=== PATIENT | male | born 1945 | race Two or more races ===

== ENCOUNTER → 2018-01-28 | Outpatient (CLI) | payer OTHER, MEDICAID ==
[~2018-01-28] VITALS: Ht 172.7 cm; Wt 65.8 kg
[~2018-01-28] MED LIST: ASPI81CH43 PO; ATEN-60 PO; ATROPINE SULF 1 MG/10ml SYR ONE; DOBUTamine 1000MCG/ML 100 ML IV ONE
[2018-01-28 09:15] VITALS: BP 160/91
== END | disposition home or self-care (01) ==
LOC: XY 08:11
PROVIDERS: ATTEND Internal Medicine
DX: I99.8 Other disorder of circulatory system (principal)
CPT/HCPCS: 78452; 93017; A9500; J1250

== ENCOUNTER → 2018-02-11 | Outpatient (CLI) | payer OTHER, MEDICAID ==
[~2018-02-11] MED LIST changes: -ATROPINE SULF 1 MG/10ml SYR ONE; -DOBUTamine 1000MCG/ML 100 ML IV ONE
== END | disposition home or self-care (01) ==
LOC: XYW 09:08
PROVIDERS: ATTEND Internal Medicine
DX: Z01.818 Encounter for other preprocedural examination (principal); I51.7 Cardiomegaly
CPT/HCPCS: 93306

== ENCOUNTER 2018-04-22 07:50 | Inpatient (IN) | payer OTHER, MEDICAID ==
[2018-04-20 11:58] LABS: Basophils # (auto) 0 uL; Eosinophils # (auto) 0.1 uL; Eosinophils % (auto) 2.2 % (0.0-7.0); Hematocrit 40.5 % (41.0-53.0); Hemoglobin 13.5 g/dL (13.5-17.5); Lymphocytes # (auto) 1.6 uL; Lymphocytes % (auto) 33.7 % (10.0-50.0); Mean Corpuscular Hemoglobin 32.4 pg (28.0-32.0); Mean Corpuscular Hgb Conc. 33.2 g/dL (32.0-36.0); Mean Corpuscular Volume 97.5 fL (80.0-100.0); Monocytes # (auto) 0.5 uL; Monocytes % (auto) 10.1 % (0.0-12.0); Neutrophils # (auto) 2.5 uL; Nucleated Red Blood Cells % 0.1 %; Platelet Count (auto) 236 10^3/uL (140-450); Red Blood Cells 4.16 10^6/uL (4.5-5.90); Red Cell Distribution Width 13.3 % (11.8-14.3); White Blood Cell 4.8 10^3/uL (4.4-10.8)
[2018-04-20 12:09] LABS: Urine Bacteria NONE SEEN /hpf (None Seen); Urine Blood 1+ /uL (Negative); Urine Specific Gravity 1.015 (1.001-1.035); Urine WBC 2 /hpf (0 - 3)
[2018-04-20 12:14] LABS: INR 0.92 (0.9-1.15); Partial Thromboplastin Time 24.6 sec (23.78-33.04); Prothrombin Time 9.9 sec (9.27-12.13)
[2018-04-20 13:44] LABS: Potassium 4.1 mmol/L (3.5-5.1)
[2018-04-20 13:57] LABS: Albumin 3.9 g/dL (3.4-5.0); BUN/Creatinine Ratio 13.1; Bilirubin, Total 0.3 mg/dL (0.2-1.0); Calcium 8.9 mg/dL (8.5-10.1); Total Protein 7.7 g/dL (6.4-8.2)
[~2018-04-22] VITALS: Ht 172.7 cm; Wt 62.9 kg
[~2018-04-22 07:50] MED LIST changes: -ASPI81CH43 PO; -ATEN-60 PO; +IBUP800T24 PO; +TIOTCAP IN
[2018-04-22] MEDS ORDERED: ceFAZolin 1GM/50ML 50 ML IV ONE (08:30)
[2018-04-22] MEDS ORDERED: LIDOCAINE 2% (LOCAL ANESTH.) PF 5ml SDV ONE (09:35)
[2018-04-22] MEDS ORDERED: MIDAZOLAM HCL 1MG/1ML-2 ML VIAL ONE (09:35)
[2018-04-22] MEDS ORDERED: ROCURONIUM 10MG/ML 10ML VIAL IV ONE (09:36)
[2018-04-22] MEDS ORDERED: ETOMIDATE (2MG/ML) 20ML VIAL IV ONE (09:36)
[2018-04-22] MEDS ORDERED: BUPIVACAINE W/ EPINEPH 0.25% INJ 50ML MDV ONE (10:25)
[2018-04-22] MEDS ORDERED: fentaNYL CITRATE 100 MCG/2 ML VL ONE (10:45)
[2018-04-22] MEDS ORDERED: NALOXONE HCL 0.4 MG/ML VIAL IV PRN (11:00)
[2018-04-22] MEDS ORDERED: ONDANSETRON HCL 4 MG/2 ML VIAL IV ONE (11:00)
[2018-04-22] MEDS ORDERED: ePHEDrine SULFATE 50 MG/ML AMP ONE (11:22)
[2018-04-22] MEDS ORDERED: STERILE WATER 10 ML ONE (11:22)
[2018-04-22] MEDS ORDERED: NEOSTIGMINE 1 MG/ML INJ (10mg/10ML VIAL) ONE (12:07)
[2018-04-22] MEDS ORDERED: GLYCOPYRROLATE 0.2 MG/ML 1ML VIAL ONE (12:07)
[2018-04-22] MEDS ORDERED: hydrALAZINE HCL 20 MG/ML VL IV ONE (12:30)
[2018-04-22] MEDS ORDERED: hydrALAZINE HCL 20 MG/ML VL ONE (12:35)
[2018-04-22] MEDS ORDERED: hydrALAZINE HCL 20 MG/ML VL IV PRN (12:45)
[2018-04-22] MEDS ORDERED: ONDANSETRON HCL 4 MG/2 ML VIAL IV PRN (12:45)
[2018-04-22] MEDS: SODIUM CHLORIDE 0.9% 1,000 ML IV SCH (12:45)
[2018-04-22] MEDS: HYDROmorphone HCL 2 MG/ML VL IV PRN ×4 (12:55→15:42)
[2018-04-22] MEDS ORDERED: PANTOPRAZOLE 40 MG/10 ML VIAL IV ONE (13:00)
--- NOTE | 2018-04-22 17:10 | NUR ---
PATIENT ARRIVED FROM POST OP BY [facility]. ALERT ORIENTED X4, TRANSFERRED GENTLY FROM THE RNEY TO BED, PT HAS A MIDLINE INCISION AT THE ABDOMEN AREA, COVERED WITH DRY DRESSING, AND ABDOMEN BINDER, PT STILL HAVE HIS UNDERWEAR, REUSED STRONGLY, STATED < NO > , A URINAL GIVEN TO PT , PT'S BROTHER AT BED SIDE, ROOM ORIENTATION GIVEN TO PT, CALL LIGHT WITHIN REACH.
[2018-04-22 17:26] VITALS: BP 136/68
[2018-04-22 17:49] VITALS: BP 136/68
[2018-04-22] MEDS: MORPHINE SULFATE 4 MG/ML SYR/VIAL IV PRN ×2 (17:58→22:41)
[2018-04-22] MEDS: IPRATROPIUM BROM 0.5 MG/2.5ML INH SOL NEB SCH (18:52)
[2018-04-22] MEDS: ALBUTEROL SULF 2.5 MG/0.5ML(0.5%) NEB SOLN NEB SCH (18:52)
[2018-04-22 18:57] VITALS: BP 136/68
--- NOTE | 2018-04-22 19:15 | NUR ---
Opening Shift Note Assumed care of patient, awake and alert. No S/S of distress or SOB. Abdomen dressing dry and intact. Instructed on POC and to call for assistance PRN, will continue to monitor for changes Q1hr and PRN.
[2018-04-22 22:00] VITALS: BP 123/65
[2018-04-23] MEDS: SODIUM CHLORIDE 0.9% 1,000 ML IV SCH ×2 (00:35→15:25)
[2018-04-23] MEDS: MORPHINE SULFATE 4 MG/ML SYR/VIAL IV PRN ×2 (03:58→09:33)
[2018-04-23 05:05] VITALS: BP 115/60
[2018-04-23 06:25] LABS: Basophils # (auto) 0 uL; Basophils % (auto) 0.4 % (0.0-2.0); Eosinophils # (auto) 0 uL; Eosinophils % (auto) 0.1 % (0.0-7.0); Hematocrit 37.2 % (41.0-53.0); Hemoglobin 12.4 g/dL (13.5-17.5); Lymphocytes % (auto) 14.4 % (10.0-50.0); Mean Corpuscular Hemoglobin 32.7 pg (28.0-32.0); Mean Corpuscular Hgb Conc. 33.3 g/dL (32.0-36.0); Mean Corpuscular Volume 98.1 fL (80.0-100.0); Monocytes # (auto) 0.6 uL; Neutrophils # (auto) 5.3 uL; Neutrophils % (auto) 76.1 % (37.0-80.0); Nucleated Red Blood Cells % 0.1 %; Platelet Count (auto) 196 10^3/uL (140-450); Red Blood Cells 3.79 10^6/uL (4.5-5.90); Red Cell Distribution Width 13.1 % (11.8-14.3)
[2018-04-23 06:27] LABS: Potassium 4.7 mmol/L (3.5-5.1)
[2018-04-23 06:31] LABS: BUN/Creatinine Ratio 10.7
[2018-04-23] MEDS: IPRATROPIUM BROM 0.5 MG/2.5ML INH SOL NEB SCH ×4 (06:54→19:32)
[2018-04-23] MEDS: ALBUTEROL SULF 2.5 MG/0.5ML(0.5%) NEB SOLN NEB SCH ×4 (06:54→19:32)
[2018-04-23 09:00] VITALS: BP 125/56
[2018-04-23] MEDS: PANTOPRAZOLE 40 MG/10 ML VIAL IV SCH (09:33)
[2018-04-23 13:00] VITALS: BP 118/66
[2018-04-23] MEDS: HYDROcodone-ACET 5/325MG TAB PO PRN ×2 (14:15→20:25)
[2018-04-23 17:00] VITALS: BP 108/60
[2018-04-23 22:00] VITALS: BP 135/69
[2018-04-24] MEDS: SODIUM CHLORIDE 0.9% 1,000 ML IV SCH ×2 (04:45→18:05)
[2018-04-24 05:00] VITALS: BP 146/66
[2018-04-24] MEDS: ALBUTEROL SULF 2.5 MG/0.5ML(0.5%) NEB SOLN NEB SCH ×4 (06:40→17:57)
[2018-04-24] MEDS: IPRATROPIUM BROM 0.5 MG/2.5ML INH SOL NEB SCH ×4 (06:40→17:57)
[2018-04-24 07:00] LABS: Basophils # (auto) 0 uL; Basophils % (auto) 0.2 % (0.0-2.0); Eosinophils # (auto) 0 uL; Eosinophils % (auto) 0.3 % (0.0-7.0); Hemoglobin 12.2 g/dL (13.5-17.5); Lymphocytes # (auto) 0.9 uL; Lymphocytes % (auto) 15.3 % (10.0-50.0); Mean Corpuscular Hemoglobin 32.4 pg (28.0-32.0); Monocytes # (auto) 0.5 uL; Monocytes % (auto) 8.4 % (0.0-12.0); Neutrophils # (auto) 4.5 uL; Neutrophils % (auto) 75.8 % (37.0-80.0); Nucleated Red Blood Cells % 0.1 %; Platelet Count (auto) 181 10^3/uL (140-450); Red Blood Cells 3.78 10^6/uL (4.5-5.90); Red Cell Distribution Width 12.9 % (11.8-14.3); White Blood Cell 5.9 10^3/uL (4.4-10.8)
--- NOTE | 2018-04-24 07:13 | NUR ---
Shift Note The patient had an uneventful night, tolerated treatments well, had few complaints. The patient did have some complaints of pain earlier in the shift but not since. Last check he was 5/10 pain at 0615hrs. The patient did get up to go to the bathroom but only put out gas. Will continue to monitor.
[2018-04-24] MEDS: HYDROcodone-ACET 5/325MG TAB PO PRN ×2 (08:02→16:59)
[2018-04-24 09:00] VITALS: BP 135/71
[2018-04-24] MEDS: PANTOPRAZOLE 40 MG/10 ML VIAL IV SCH (10:08)
--- NOTE | 2018-04-24 11:45 | NUR ---
RT NOTE: WENT TO PTS ROOM TO ASSESS FOR PRN BREATHING TX, PT SLEEPING AT THIS TIME. HR 83, SPO2 93% ON RA, RR 16, BREATH SOUNDS CLEAR. NO INDICATION FOR TX AT THIS TIME. WILL CONTINUE TO MONITOR PT. Addendum: 04/24/18 at 1153 by KARSTEN VELARDE RT WRONG PT.
[2018-04-24 13:04] VITALS: BP 113/56
[2018-04-24 17:00] VITALS: BP 153/88
[2018-04-24 22:10] VITALS: BP 123/104
[2018-04-25] MEDS: SODIUM CHLORIDE 0.9% 1,000 ML IV SCH (03:58)
[2018-04-25 04:55] VITALS: BP 131/77
[2018-04-25] MEDS: IPRATROPIUM BROM 0.5 MG/2.5ML INH SOL NEB SCH ×4 (06:31→19:15)
[2018-04-25] MEDS: ALBUTEROL SULF 2.5 MG/0.5ML(0.5%) NEB SOLN NEB SCH ×4 (06:31→19:15)
--- NOTE | 2018-04-25 06:31 | NUR ---
Shift Note The patient had an uneventful night, tolerated treatments well, had few complaints. He didn't really want his IV fluids running but explained that the doctor ordered it as needed. I further explained we can ask about the fluids during the day. The patient ambulated to the bathroom without difficulty, only passed gas, no BM. No complaints of pain during the shift, he pain was tolerable around 4-5/10. Will continue to monitor.
[2018-04-25 06:44] LABS: Hematocrit 37.1 % (41.0-53.0); Hemoglobin 12.3 g/dL (13.5-17.5)
[2018-04-25 07:07] LABS: BUN/Creatinine Ratio 7.9; Calcium 9.2 mg/dL (8.5-10.1); Potassium 4.2 mmol/L (3.5-5.1)
[2018-04-25 08:29] VITALS: BP 115/84
[2018-04-25] MEDS: PANTOPRAZOLE 40 MG/10 ML VIAL IV SCH (10:22)
[2018-04-25 12:31] VITALS: BP 129/90
--- NOTE | 2018-04-25 13:12 | NUR ---
DR DÍAZ AT BEDSIDE PATIENT SAID HE FEELS SHORT OF BREATH WITH OUT OXYGEN. ORDERS GIVEN TO CHECK ROOM AIR PULSE OX. STOP IV FLUIDS. CHEST X RAY.
--- NOTE | 2018-04-25 13:14 | NUR ---
PULSE OX ON ROOM AIR 88%. PLACED ON OXYGEN 2 LITERS VIA NASAL CANNULA OXYGEN SATURATION NOW 95 %.
[2018-04-25] MEDS ORDERED: FUROSEMIDE 20 MG/2 ML VIAL IV ONE (13:15)
[2018-04-25] MEDS ORDERED: MORPHINE SULFATE 4 MG/ML SYR/VIAL IV PRN (13:30)
[2018-04-25] MEDS ORDERED: ALBUTEROL SULF 2.5 MG/0.5ML(0.5%) NEB SOLN NEB PRN (13:30)
[2018-04-25] MEDS ORDERED: cefTRIAXone 1GM/50ML D5W 50 ML IV ONE (14:45)
[2018-04-25] MEDS ORDERED: AZITHROMYCIN 500MG/ 250ML 250 ML IV ONE (15:45)
[2018-04-25] MEDS: HYDROcodone-ACET 5/325MG TAB PO PRN (16:32)
[2018-04-25 17:19] VITALS: BP 126/84
--- NOTE | 2018-04-25 19:40 | NUR ---
Opening Shift Note Assumed care of patient, awake and alert. No S/S of distress/SOB or pain. Instructed on POC and to call for assist PRN. Bed in lowest locked position, call light within reach, side rails up x2, fall precautions in place. Will continue to monitor for changes Q1hr and PRN.
[2018-04-25 22:00] VITALS: BP 132/83
[2018-04-25] MEDS: DOCUSATE SOD 100 MG CAP PO SCH (22:18)
[2018-04-26] VITALS (7 sets, daily range): BP systolic 118–138; BP diastolic 70–86
[2018-04-26] MEDS: IPRATROPIUM BROM 0.5 MG/2.5ML INH SOL NEB SCH ×4 (06:30→23:29)
[2018-04-26] MEDS: ALBUTEROL SULF 2.5 MG/0.5ML(0.5%) NEB SOLN NEB SCH ×4 (06:30→23:29)
--- NOTE | 2018-04-26 07:40 | NUR ---
OPENING SHIFT NOTE ASSUMED CARE OF PATIENT FROM POINT OF CARE TECHNICIAN RN COLT. PATIENT IS AWAKE AND ALERT X4. PATIENT HAS NO S/S OF DISTRESS/SOB OR PAIN. INSTRUCTED PATIENT ON POC, PATIENT VERBALIZED UNDERSTANDING. BED IS IN LOWEST POSITION WITH SIDE RAILS RAISED X2, BED WHEELS LOCKED, AND CALL LIGHT WITHIN REACH. WILL CONTINUE TO MONITOR.
[2018-04-26] MEDS: cefTRIAXone 1GM/50ML D5W 50 ML IV SCH (09:46)
[2018-04-26] MEDS: DOCUSATE SOD 100 MG CAP PO SCH ×2 (09:46→21:31)
[2018-04-26] MEDS: PANTOPRAZOLE 40 MG/10 ML VIAL IV SCH (09:46)
[2018-04-26] MEDS: HYDROcodone-ACET 5/325MG TAB PO PRN ×2 (11:40→20:35)
[2018-04-26] MEDS: AZITHROMYCIN 500MG/ 250ML 250 ML IV SCH (11:41)
[2018-04-26] MEDS ORDERED: IPRATROPIUM BROM 0.5 MG/2.5ML INH SOL NEB PRN (13:45)
--- NOTE | 2018-04-26 19:20 | NUR ---
Opening Shift Note Assumed care of patient, awake and alert. No S/S of distress/SOB or pain. Instructed on POC and to call for assist PRN. Bed in lowest locked position, call light within reach, side rails up x2. Will continue to monitor for changes Q1hr and PRN.
--- NOTE | 2018-04-26 19:23 | NUR ---
CLOSING SHIFT NOTE ENDORSED CARE TO MANAGER CHANGE RN COLT. PATIENT HAS NO S/S OF DISTRESS/SOB OR PAIN AT THIS TIME.
[2018-04-27 05:00] VITALS: BP 130/72
[2018-04-27 07:01] LABS: Basophils # (auto) 0 uL; Basophils % (auto) 0.5 % (0.0-2.0); Eosinophils # (auto) 0.1 uL; Eosinophils % (auto) 2.4 % (0.0-7.0); Hematocrit 37.7 % (41.0-53.0); Hemoglobin 12.5 g/dL (13.5-17.5); Lymphocytes # (auto) 1.4 uL; Lymphocytes % (auto) 28.2 % (10.0-50.0); Mean Corpuscular Hemoglobin 32.4 pg (28.0-32.0); Mean Corpuscular Hgb Conc. 33.1 g/dL (32.0-36.0); Monocytes # (auto) 0.5 uL; Neutrophils # (auto) 2.8 uL; Neutrophils % (auto) 57.9 % (37.0-80.0); Nucleated Red Blood Cells % 0.1 %; Platelet Count (auto) 261 10^3/uL (140-450); Red Blood Cells 3.84 10^6/uL (4.5-5.90); Red Cell Distribution Width 12.9 % (11.8-14.3); White Blood Cell 4.8 10^3/uL (4.4-10.8)
[2018-04-27] MEDS: IPRATROPIUM BROM 0.5 MG/2.5ML INH SOL NEB SCH ×2 (07:12→11:40)
[2018-04-27] MEDS: ALBUTEROL SULF 2.5 MG/0.5ML(0.5%) NEB SOLN NEB SCH ×2 (07:12→11:40)
[2018-04-27 07:26] LABS: BUN/Creatinine Ratio 10.8; Calcium 9.3 mg/dL (8.5-10.1); Magnesium 2.1 mg/dL (1.6-2.6)
[2018-04-27 08:00] VITALS: BP 123/66
[2018-04-27 08:10] VITALS: BP 123/66
[2018-04-27] MEDS: PANTOPRAZOLE 40 MG/10 ML VIAL IV SCH (09:14)
[2018-04-27] MEDS: AZITHROMYCIN 500MG/ 250ML 250 ML IV SCH (09:14)
[2018-04-27] MEDS: DOCUSATE SOD 100 MG CAP PO SCH (09:14)
[2018-04-27] MEDS: cefTRIAXone 1GM/50ML D5W 50 ML IV SCH (09:14)
[2018-04-27] MEDS: HYDROcodone-ACET 5/325MG TAB PO PRN (09:21)
--- NOTE | 2018-04-27 09:52 | NUR ---
faxed o2 order to [facility]. Instructed [facility] of managed care to f/u with this order and make sure 02 gets to pt
[2018-04-27 12:24] VITALS: BP 119/76
[2018-04-27] MEDS ORDERED: DOCUSATE SOD 100 MG CAP PO ONE (12:30)
--- NOTE | 2018-04-27 12:30 | NUR ---
Dr. Cruz at bedside discussed with patient and patient is cleared to go home today.
--- NOTE | 2018-04-27 13:51 | NUR ---
amanda and d/cindy order faxed to [facility] and to May in [facility]
[2018-04-27 14:14] VITALS: BP 119/76
--- NOTE | 2018-04-27 15:00 | NUR ---
patient still has no BM, prune juice give and encourage to ambulate.
--- NOTE | 2018-04-27 15:50 | NUR ---
Left a message to Deborah regarding home o2 , awaiting to call back .
--- NOTE | 2018-04-27 15:52 | NUR ---
Received a call from Deborah stated Home o2 and a walker will deliver around 4 PM by # [phone]
--- NOTE | 2018-04-27 15:53 | NUR ---
PER MAY IN [facility], WALKER AND 02 WILL BE DELIVERED TO BEDSIDE AT APPROX 1600 HRS
--- NOTE | 2018-04-27 15:54 | NUR ---
PH # IS [phone] OR [phone]
--- NOTE | 2018-04-27 16:28 | NUR ---
Oxygen delivered at bedside but there is no walker, spoke to Deborah, stated will call a company.
--- NOTE | 2018-04-27 16:32 | NUR ---
Per Deborah [facility] will come back to deliver a walker.
--- NOTE | 2018-04-27 16:34 | NUR ---
MISBAH FORGOT TO DROP OFF WALKER WHEN THE DELIVERED . PER MAY, SHE CALLED [facility] AND THEY WILL DROP OF WALKER
[2018-04-27 17:00] VITALS: BP 137/83
--- NOTE | 2018-04-27 18:15 | NUR ---
Home oxygen and walker deliver at bedside by [facility].
--- NOTE | 2018-04-27 18:20 | NUR ---
Discharge instructions given as ordered. Encourage to follow up with PMD(Follow up with Dr. Desir in 1 week Address : [id number] [place] [address] [address], [place], [address] # [phone] Ext : [phone] Instructed patient to call and make an appointment with Dr. Desir next week, Follow up with PCP in 1-2 weeks) as instructed. All questions and concerns addressed. Patient verbalized understanding. Medication reconciliation form completed and copy given to patient. IV removed with catheter intact, pressure dressing applied. Patient taken to vehicle via wheelchair with all personal belongings including home oxygen and walker, accompanied by staff and family member. No distress noted at time of departure.
== END 2018-04-27 18:20 | disposition home or self-care (01) | DRG 335 ==
LOC: SUR 07:50 → EAST 17:07
PROVIDERS: ADMIT Surgery; ATTEND Internal Medicine
PROC: 0WQF0ZZ Repair Abdominal Wall, Open Approach (ICD-10-PCS; 2018-04-22)
PROC: 0DNW0ZZ Release Peritoneum, Open Approach (ICD-10-PCS; principal; 2018-04-22 10:33)
DX: K43.2 Incisional hernia without obstruction or gangrene (principal); J96.00 Acute respiratory failure, unspecified whether with hypoxia or hypercapnia; J18.9 Pneumonia, unspecified organism; I42.0 Dilated cardiomyopathy; J44.1 Chronic obstructive pulmonary disease with (acute) exacerbation; J45.901 Unspecified asthma with (acute) exacerbation; J98.11 Atelectasis; J44.9 Chronic obstructive pulmonary disease, unspecified; G89.29 Other chronic pain; M54.9 Dorsalgia, unspecified; K66.0 Peritoneal adhesions (postprocedural) (postinfection); K21.9 Gastro-esophageal reflux disease without esophagitis; Z99.81 Dependence on supplemental oxygen
CPT/HCPCS: 36415; 36600; 71046; 80048; 80053; 81001; 82805; 83735; 85014; 85018; 85025; 85610; 85730; 87070; 87075; 87205; 94640; C9113; G0378; J0690; J0696; J2001; J2250; J2405